=== PATIENT | male | born 1950 | race Hispanic/Latino ===

== ENCOUNTER 2017-04-21 20:32 | Inpatient (IN) | payer MEDICARE ==
[~2017-04-21] VITALS: Ht 162.6 cm; Wt 60.4 kg
[2017-04-21 21:06] LABS: BASOPHILS % (AUTO) 0.1 % (0.0-5.0); EOSINOPHILS % (AUTO) 0.2 % (0.0-8.0); HEMATOCRIT 28.3 % (42-54); LYMPHOCYTES % (AUTO) 7.1 % (21.0-51.0); MEAN CORPUSCULAR HEMOGLOBIN 28.8 pg (27.0-33.0); MEAN CORPUSCULAR HGB CONC 34.3 g/dL (32.0-36.0); MONOCYTES % (AUTO) 6.9 % (3.0-13.0); NEUTROPHILS % (AUTO) 85.7 % (40.0-77.0); PLATELET COUNT (AUTO) 224 K/uL (130-400); RED BLOOD CELL COUNT(AUTO) 3.36 MIL/uL (4.50-6.20); RED CELL DISTRIBUTION WIDTH 15.1 % (11.0-15.5); WHITE BLOOD COUNT (AUTO) 29.8 K/uL (4.8-10.8)
[2017-04-21 21:19] LABS: INR 0.98 (0.85-1.15); PARTIAL THROMBOPLASTIN TIME 37.1 SEC (26.3-35.5); PROTHROMBIN TIME 10.3 SEC (9.6-11.6)
[2017-04-21 21:25] LABS: ALBUMIN 2.6 g/dL (3.5-5.0); BILIRUBIN,TOTAL 0.5 mg/dL (0.2-1.0)
[2017-04-21 21:26] LABS: CREATININE 1.6 mg/dL (0.5-1.5)
[2017-04-21] MEDS ORDERED: TETANUS/DIPHTHERIA TOXOID [ADULT] 0.5 ML VIAL IM ONE (21:35)
[2017-04-21] MEDS ORDERED: CEFTRIAXONE SODIUM 1 GM ONE (21:35)
[2017-04-21 21:58] LABS: BAND NEUTROPHILS % (MANUAL) 12 % (0-2); EOSINOPHILS % (MANUAL) 1 % (1-6); LYMPHOCYTES % (MANUAL) 3 % (22-44); MAN.DIFF COMMENT-IMPRESSION MANUAL DIFFERENTIAL; MONOCYTES % (MANUAL) 4 % (2-9); REACTIVE LYMPHOCYTES 1 % (0-0); SEGMENTED NEUTROPHILS % 79 % (40-70)
[2017-04-21] MEDS ORDERED: INSULIN HUMULIN R 100 UNIT/ML 3ML ONE (22:25)
[2017-04-21] MEDS ORDERED: SODIUM CHLORIDE 0.9% 1000ML 1,000 ML IV SCH (23:35)
[2017-04-21] MEDS ORDERED: ACETAMINOPHEN 325 MG TAB PO PRN ×2 (23:45)
[2017-04-21] MEDS ORDERED: HYDRALAZINE HCL 20 MG/ML VIAL IV PRN (23:45)
[2017-04-21] MEDS ORDERED: VANCOMYCIN PROTOCOL PER PHARMACY IV SCH (23:45)
[2017-04-21] MEDS ORDERED: ONDANSETRON HCL 4 MG/2 ML VIAL IV PRN (23:45)
[2017-04-21] MEDS ORDERED: MORPHINE SULFATE 2 MG/ML 1ML SYG IV PRN (23:45)
[2017-04-21] MEDS ORDERED: VANCOMYCIN 1GM+NS 250ML 250 ML IV SCH (23:45)
[2017-04-21] MEDS ORDERED: CEFTRIAXONE 1GM/D5W 50ML 50 ML IV SCH (23:45)
[2017-04-22] MEDS: CEFTRIAXONE SODIUM 1 GM IVP SCH
[2017-04-22] MEDS ORDERED: VANCOMYCIN 1GM+NS 250ML 250 ML IV ONE (00:03)
[2017-04-22] MEDS ORDERED: SODIUM CHLORIDE 0.9% 1000ML 1,000 ML IV ONE (00:03)
[2017-04-22] MEDS ORDERED: MORPHINE SULFATE 8 MG/ML VIAL ONE (04:21)
[2017-04-22 05:59] LABS: HEMATOCRIT 26.5 % (42-54); MEAN CORPUSCULAR HEMOGLOBIN 28.7 pg (27.0-33.0); MEAN CORPUSCULAR HGB CONC 34.4 g/dL (32.0-36.0); MEAN CORPUSCULAR VOLUME 83.4 fL (79-99); PLATELET COUNT (AUTO) 213 K/uL (130-400); RED BLOOD CELL COUNT(AUTO) 3.18 MIL/uL (4.50-6.20); RED CELL DISTRIBUTION WIDTH 15.5 % (11.0-15.5); WHITE BLOOD COUNT (AUTO) 29.1 K/uL (4.8-10.8)
[2017-04-22 06:19] LABS: CREATININE 1.4 mg/dL (0.5-1.5); POTASSIUM 4.2 mmol/L (3.5-5.1); THYROID STIMULATING HORMONE 1.56 uIU/mL (0.36-3.74)
[2017-04-22 06:23] LABS: HEMOGLOBIN A1C 8.6 % (4.0-6.0)
[2017-04-22] MEDS: INSULIN HUMULIN R 100 UNIT/ML 3ML SQ SCH ×4 (07:30→20:54)
[2017-04-22] MEDS ORDERED: INSULIN HUMULIN R 100 UNIT/ML 3ML ONE (08:43)
[2017-04-22] MEDS: FAMOTIDINE 20MG TAB 20 MG TAB PO SCH ×2 (09:00→20:47)
[2017-04-22] MEDS ORDERED: FAMOTIDINE 20MG TAB 20 MG TAB ONE (09:31)
[2017-04-22 12:44] LABS: CHOLESTEROL 119 mg/dL (<200); HDL CHOLESTEROL 18 mg/dL (29-71); LDL DIRECT 69 mg/dL (0-99); TRIGLYCERIDES 115 mg/dL (30-200)
[2017-04-22 12:58] VITALS: BP 143/73
[2017-04-22 15:24] VITALS: BP 140/65
[2017-04-22 20:00] VITALS: BP 142/76
[2017-04-22] MEDS ORDERED: MORPHINE SULFATE 4 MG/1ML SYG ONE (20:44)
[2017-04-22] MEDS: VANCOMYCIN 1GM+NS 250ML 250 ML IV SCH (20:47)
[2017-04-23] VITALS (8 sets, daily range): BP systolic 130–154; BP diastolic 62–100
[2017-04-23] MEDS: CEFTRIAXONE SODIUM 1 GM IVP SCH (00:36)
[2017-04-23] MEDS ORDERED: INSU300I SQ (02:46)
[2017-04-23] MEDS ORDERED: ASPI-555 PO (02:46)
[2017-04-23] MEDS ORDERED: SIMV20TA6 PO (02:46)
[2017-04-23] MEDS ORDERED: LOSA25TA21 PO (02:46)
[2017-04-23] MEDS ORDERED: METF10004 PO (02:46)
[2017-04-23 04:28] LABS: HEMATOCRIT 24.5 % (42-54); MEAN CORPUSCULAR HGB CONC 33.8 g/dL (32.0-36.0); MEAN CORPUSCULAR VOLUME 82.9 fL (79-99); PLATELET COUNT (AUTO) 240 K/uL (130-400); RED BLOOD CELL COUNT(AUTO) 2.96 MIL/uL (4.50-6.20); RED CELL DISTRIBUTION WIDTH 15.6 % (11.0-15.5); WHITE BLOOD COUNT (AUTO) 27.1 K/uL (4.8-10.8)
[2017-04-23 04:35] LABS: CREATININE 1.1 mg/dL (0.5-1.5); POTASSIUM 3.5 mmol/L (3.5-5.1)
[2017-04-23] MEDS: INSULIN HUMULIN R 100 UNIT/ML 3ML SQ SCH ×4 (06:45→20:43)
[2017-04-23] MEDS: FAMOTIDINE 20MG TAB 20 MG TAB PO SCH ×2 (09:33→20:32)
[2017-04-23] MEDS ORDERED: MORPHINE SULFATE 4 MG/1ML SYG IVP PRN (10:30)
[2017-04-23] MEDS ORDERED: HYDRALAZINE HCL 20 MG/ML VIAL IV PRN (10:30)
[2017-04-23] MEDS ORDERED: ACETAMINOPHEN-CODEINE 300/30MG TAB PO PRN (10:30)
[2017-04-23] MEDS ORDERED: KETOROLAC TROMETHAMINE 15MG/ML IV PRN (10:30)
[2017-04-23] MEDS ORDERED: CEFAZOLIN 1GM / D5W 50ML 50 ML IV SCH (15:00)
[2017-04-23] MEDS: CEFAZOLIN SODIUM 1 GM VIAL IVP SCH ×2 (15:58→22:53)
[2017-04-23] MEDS: ACETAMINOPHEN-CODEINE 300/30MG TAB PO PRN (16:34)
[2017-04-23] MEDS: VANCOMYCIN 1GM+NS 250ML 250 ML IV SCH (20:33)
[2017-04-23] MEDS: INSULIN GLARGINE 100 UNITS/ML 10 ML VIAL SQ SCH (20:50)
[2017-04-24 03:30] VITALS: BP 157/73
[2017-04-24 04:45] LABS: HEMATOCRIT 25.2 % (42-54); MEAN CORPUSCULAR HEMOGLOBIN 28.3 pg (27.0-33.0); MEAN CORPUSCULAR HGB CONC 33.9 g/dL (32.0-36.0); MEAN CORPUSCULAR VOLUME 83.5 fL (79-99); PLATELET COUNT (AUTO) 277 K/uL (130-400); RED BLOOD CELL COUNT(AUTO) 3.02 MIL/uL (4.50-6.20); RED CELL DISTRIBUTION WIDTH 15.7 % (11.0-15.5); WHITE BLOOD COUNT (AUTO) 22.6 K/uL (4.8-10.8)
[2017-04-24 04:56] LABS: CREATININE 1.2 mg/dL (0.5-1.5); POTASSIUM 3.7 mmol/L (3.5-5.1)
[2017-04-24] MEDS: CEFAZOLIN SODIUM 1 GM VIAL IVP SCH ×3 (06:17→22:27)
[2017-04-24] MEDS: INSULIN HUMULIN R 100 UNIT/ML 3ML SQ SCH ×4 (06:28→21:28)
[2017-04-24 07:00] VITALS: BP 149/69
[2017-04-24] MEDS ORDERED: IOPAMIDOL-370 100 ML VIAL IV ONE (07:18)
[2017-04-24] MEDS ORDERED: ISOVUE-370 50ML VIAL IV ONE (07:18)
[2017-04-24] MEDS: ENOXAPARIN SODIUM 40 MG/0.4 ML SYRINGE SQ SCH (08:28)
[2017-04-24] MEDS: LOSARTAN 50 MG TABLET PO SCH (08:28)
[2017-04-24] MEDS: ASPIRIN 81 MG EC TAB PO SCH (08:28)
[2017-04-24] MEDS: ATORVASTATIN CALCIUM 10 MG TABLET PO SCH (08:28)
[2017-04-24] MEDS: FAMOTIDINE 20MG TAB 20 MG TAB PO SCH ×2 (08:28→21:26)
[2017-04-24 11:00] VITALS: BP 142/64
[2017-04-24] MEDS: ACETAMINOPHEN-CODEINE 300/30MG TAB PO PRN (15:00)
[2017-04-24 16:00] VITALS: BP 125/61
[2017-04-24 19:38] VITALS: BP 141/62
[2017-04-24] MEDS: VANCOMYCIN 1GM+NS 250ML 250 ML IV SCH (21:27)
[2017-04-24] MEDS: INSULIN GLARGINE 100 UNITS/ML 10 ML VIAL SQ SCH (21:29)
[2017-04-24 23:54] VITALS: BP 133/73
[2017-04-25 03:47] VITALS: BP 115/49
[2017-04-25 06:23] LABS: HEMATOCRIT 24.5 % (42-54); MEAN CORPUSCULAR HEMOGLOBIN 27.7 pg (27.0-33.0); MEAN CORPUSCULAR HGB CONC 33.2 g/dL (32.0-36.0); MEAN CORPUSCULAR VOLUME 83.3 fL (79-99); PLATELET COUNT (AUTO) 316 K/uL (130-400); RED BLOOD CELL COUNT(AUTO) 2.94 MIL/uL (4.50-6.20); RED CELL DISTRIBUTION WIDTH 15.6 % (11.0-15.5); WHITE BLOOD COUNT (AUTO) 16.8 K/uL (4.8-10.8)
[2017-04-25] MEDS: INSULIN HUMULIN R 100 UNIT/ML 3ML SQ SCH ×4 (06:30→20:59)
[2017-04-25 06:32] LABS: CREATININE 1.1 mg/dL (0.5-1.5); POTASSIUM 4.1 mmol/L (3.5-5.1)
[2017-04-25] MEDS: CEFAZOLIN SODIUM 1 GM VIAL IVP SCH ×3 (06:50→23:27)
[2017-04-25 08:00] VITALS: BP 140/58
[2017-04-25] MEDS: ATORVASTATIN CALCIUM 10 MG TABLET PO SCH (09:54)
[2017-04-25] MEDS: ASPIRIN 81 MG EC TAB PO SCH (09:54)
[2017-04-25] MEDS: FAMOTIDINE 20MG TAB 20 MG TAB PO SCH ×2 (09:55→20:53)
[2017-04-25] MEDS: LOSARTAN 50 MG TABLET PO SCH (09:55)
[2017-04-25] MEDS: ENOXAPARIN SODIUM 40 MG/0.4 ML SYRINGE SQ SCH (09:56)
[2017-04-25 11:58] VITALS: BP 153/69
[2017-04-25 16:00] VITALS: BP 131/58
[2017-04-25 19:43] VITALS: BP 144/85
[2017-04-25] MEDS: INSULIN GLARGINE 100 UNITS/ML 10 ML VIAL SQ SCH (21:01)
[2017-04-25] MEDS: VANCOMYCIN 1GM+NS 250ML 250 ML IV SCH (21:02)
[2017-04-25 23:43] VITALS: BP 141/67
[2017-04-26 03:58] VITALS: BP 141/67
[2017-04-26] MEDS: CEFAZOLIN SODIUM 1 GM VIAL IVP SCH ×3 (06:09→23:47)
[2017-04-26] MEDS: INSULIN HUMULIN R 100 UNIT/ML 3ML SQ SCH ×4 (06:10→21:14)
[2017-04-26 08:00] VITALS: BP 110/56
[2017-04-26] MEDS: LOSARTAN 50 MG TABLET PO SCH (09:58)
[2017-04-26] MEDS: CLOPIDOGREL BISULFATE 75 MG TAB PO SCH (09:59)
[2017-04-26] MEDS: ATORVASTATIN CALCIUM 10 MG TABLET PO SCH (10:00)
[2017-04-26] MEDS: FERROUS SULFATE 325 MG TABLET.DR PO SCH ×2 (10:00→21:05)
[2017-04-26] MEDS: ASPIRIN 81 MG EC TAB PO SCH (10:00)
[2017-04-26] MEDS: FAMOTIDINE 20MG TAB 20 MG TAB PO SCH ×2 (10:00→21:05)
[2017-04-26] MEDS: METOPROLOL TARTRATE 25 MG TAB PO SCH ×2 (10:01→21:05)
[2017-04-26] MEDS: VANCOMYCIN 1GM+NS 250ML 250 ML IV SCH ×2 (10:01→21:05)
[2017-04-26] MEDS: ENOXAPARIN SODIUM 40 MG/0.4 ML SYRINGE SQ SCH (10:04)
[2017-04-26 11:00] VITALS: BP 155/68
[2017-04-26] MEDS ORDERED: MORPHINE SULFATE 4 MG/1ML SYG IV PRN (15:45)
[2017-04-26 16:00] VITALS: BP 159/60
[2017-04-26 20:00] VITALS: BP 128/59
[2017-04-26] MEDS: INSULIN GLARGINE 100 UNITS/ML 10 ML VIAL SQ SCH (21:13)
[2017-04-27] VITALS (28 sets, daily range): BP systolic 113–161; BP diastolic 50–79
[2017-04-27] MEDS: CEFAZOLIN SODIUM 1 GM VIAL IVP SCH ×3 (06:01→22:16)
[2017-04-27] MEDS: METOPROLOL TARTRATE 25 MG TAB PO SCH (06:14)
[2017-04-27] MEDS: INSULIN HUMULIN R 100 UNIT/ML 3ML SQ SCH ×4 (06:15→22:13)
[2017-04-27] MEDS ORDERED: SODIUM CHLORIDE 0.9% 1000ML 1,000 ML IV ONE (06:41)
[2017-04-27] MEDS ORDERED: BUPIVACAINE/PF 0.5% 30ML VIAL ONE (06:58)
[2017-04-27] MEDS ORDERED: LIDOCAINE HCL 1% 20 ML VIAL ONE (06:58)
[2017-04-27] MEDS ORDERED: FENTANYL CITRATE PF 50 MCG/1 ML 2ML VIAL ONE (07:10)
[2017-04-27] MEDS ORDERED: MIDAZOLAM HCL 1 MG/ML 2ML VIAL ONE (07:10)
[2017-04-27] MEDS ORDERED: PROPOFOL 10 MG/ML 20ML VIAL IV ONE (07:10)
[2017-04-27] MEDS: METOPROLOL TARTRATE 50 MG TAB PO SCH ×2 (09:00→22:16)
[2017-04-27] MEDS: MUPIROCIN OINTMENT 22 GM TUBE TP SCH (09:00)
[2017-04-27] MEDS: ASPIRIN 81 MG EC TAB PO SCH (10:23)
[2017-04-27] MEDS: LOSARTAN 50 MG TABLET PO SCH (10:24)
[2017-04-27] MEDS: FAMOTIDINE 20MG TAB 20 MG TAB PO SCH ×2 (10:25→22:16)
[2017-04-27] MEDS: VANCOMYCIN 1GM+NS 250ML 250 ML IV SCH ×2 (10:25→22:17)
[2017-04-27] MEDS: CLOPIDOGREL BISULFATE 75 MG TAB PO SCH (10:25)
[2017-04-27] MEDS: ATORVASTATIN CALCIUM 10 MG TABLET PO SCH (10:26)
[2017-04-27] MEDS: FERROUS SULFATE 325 MG TABLET.DR PO SCH ×2 (10:26→22:16)
[2017-04-27] MEDS: ENOXAPARIN SODIUM 40 MG/0.4 ML SYRINGE SQ SCH (10:31)
[2017-04-27] MEDS: INSULIN GLARGINE 100 UNITS/ML 10 ML VIAL SQ SCH (22:14)
[2017-04-28] VITALS: BP 120/55
[2017-04-28 04:00] VITALS: BP 138/69
[2017-04-28 04:20] LABS: HEMATOCRIT 23.2 % (42-54); MEAN CORPUSCULAR HEMOGLOBIN 28.5 pg (27.0-33.0); MEAN CORPUSCULAR HGB CONC 34.2 g/dL (32.0-36.0); MEAN CORPUSCULAR VOLUME 83.4 fL (79-99); PLATELET COUNT (AUTO) 483 K/uL (130-400); RED BLOOD CELL COUNT(AUTO) 2.78 MIL/uL (4.50-6.20); RED CELL DISTRIBUTION WIDTH 15.3 % (11.0-15.5); WHITE BLOOD COUNT (AUTO) 14.7 K/uL (4.8-10.8)
[2017-04-28 04:40] LABS: CREATININE 1.2 mg/dL (0.5-1.5); POTASSIUM 3.5 mmol/L (3.5-5.1)
[2017-04-28] MEDS: CEFAZOLIN SODIUM 1 GM VIAL IVP SCH ×2 (06:21→16:31)
[2017-04-28] MEDS: INSULIN HUMULIN R 100 UNIT/ML 3ML SQ SCH ×3 (06:26→16:38)
[2017-04-28 07:00] VITALS: BP 145/59
[2017-04-28] MEDS: VANCOMYCIN 1GM+NS 250ML 250 ML IV SCH (09:00)
[2017-04-28] MEDS: FERROUS SULFATE 325 MG TABLET.DR PO SCH (09:22)
[2017-04-28] MEDS: ASPIRIN 81 MG EC TAB PO SCH (09:22)
[2017-04-28] MEDS: CLOPIDOGREL BISULFATE 75 MG TAB PO SCH (09:22)
[2017-04-28] MEDS: ATORVASTATIN CALCIUM 10 MG TABLET PO SCH (09:22)
[2017-04-28] MEDS: FAMOTIDINE 20MG TAB 20 MG TAB PO SCH (09:22)
[2017-04-28] MEDS: LOSARTAN 50 MG TABLET PO SCH (09:23)
[2017-04-28] MEDS: MUPIROCIN OINTMENT 22 GM TUBE TP SCH (09:24)
[2017-04-28] MEDS: ENOXAPARIN SODIUM 40 MG/0.4 ML SYRINGE SQ SCH (09:25)
[2017-04-28] MEDS: METOPROLOL TARTRATE 50 MG TAB PO SCH (09:26)
[2017-04-28 09:44] LABS: RETICULOCYTE % (AUTO) 2.37 % (0.42-2.23)
[2017-04-28] MEDS ORDERED: IRON SUCROSE COMPLEX 100 MG in SODIUM CHLORIDE 0.9% 50 ML IV SCH (10:08)
[2017-04-28] MEDS ORDERED: COMPOUND IV MISC 1 EACH IVSOLN MISC PRN (10:15)
[2017-04-28 11:00] VITALS: BP 151/66
[2017-04-28 16:00] VITALS: BP 149/67
== END 2017-04-28 17:50 | DRG 854 ==
LOC: EDH 20:32 → EDHIP 22:58 → OBSVTOIN 22:58 → 3CH 04-22 11:55
PROVIDERS: ADMIT Internal Medicine; ATTEND Internal Medicine
PROC: 3E0234Z Introduction of Serum, Toxoid and Vaccine into Muscle, Percutaneous Approach (ICD-10-PCS; 2017-04-27)
PROC: 0J9R0ZZ Drainage of Left Foot Subcutaneous Tissue and Fascia, Open Approach (ICD-10-PCS; principal; 2017-04-27 07:00)
DX: A41.9 Sepsis, unspecified organism (principal); N17.9 Acute kidney failure, unspecified; E11.21 Type 2 diabetes mellitus with diabetic nephropathy; E11.51 Type 2 diabetes mellitus with diabetic peripheral angiopathy without gangrene; L02.416 Cutaneous abscess of left lower limb; E87.1 Hypo-osmolality and hyponatremia; L03.116 Cellulitis of left lower limb; L02.414 Cutaneous abscess of left upper limb; L97.329 Non-pressure chronic ulcer of left ankle with unspecified severity; E11.65 Type 2 diabetes mellitus with hyperglycemia; D64.9 Anemia, unspecified; E11.622 Type 2 diabetes mellitus with other skin ulcer; E78.5 Hyperlipidemia, unspecified; F17.210 Nicotine dependence, cigarettes, uncomplicated; I10 Essential (primary) hypertension; I35.0 Nonrheumatic aortic (valve) stenosis; K27.9 Peptic ulcer, site unspecified, unspecified as acute or chronic, without hemorrhage or perforation; Z79.82 Long term (current) use of aspirin; Z23 Encounter for immunization; Z83.3 Family history of diabetes mellitus
CPT/HCPCS: 36415; 73700; 75635; 80048; 80053; 80061; 80202; 82607; 82728; 82746; 82948; 83036; 83605; 84443; 85007; 85025; 85027; 85610; 85651; 85730; 87040; 87070; 87076; 87077; 90714; 93306; 93926; 93971; A4218; J0360; J0690; J0696; J1650; J1756; J1815; J2250; J2270; J2704; J3010; J3370; J3490; J7030; Q9967

== ENCOUNTER → 2017-06-02 | Outpatient (CLI) | payer MEDICARE ==
[~2017-06-02] MED LIST: ASPI-555 PO; HONEY 1 APPL/ML TUBE TP ONE; INSU300I SQ; LOSA25TA21 PO; METF10004 PO; SIMV20TA6 PO
[2017-06-02 13:44] VITALS: BP 158/62
== END | disposition home or self-care (01) ==
LOC: WHH 10:30
PROVIDERS: ATTEND Podiatrist Foot & Ankle Surgery
DX: E11.622 Type 2 diabetes mellitus with other skin ulcer (principal); I70.243 Atherosclerosis of native arteries of left leg with ulceration of ankle; L97.321 Non-pressure chronic ulcer of left ankle limited to breakdown of skin; E11.21 Type 2 diabetes mellitus with diabetic nephropathy; E11.65 Type 2 diabetes mellitus with hyperglycemia; E11.42 Type 2 diabetes mellitus with diabetic polyneuropathy; E11.51 Type 2 diabetes mellitus with diabetic peripheral angiopathy without gangrene; I10 Essential (primary) hypertension; F17.210 Nicotine dependence, cigarettes, uncomplicated; Z79.82 Long term (current) use of aspirin
CPT/HCPCS: A4450; G0463

== ENCOUNTER 2017-06-23 09:22 | Emergency (ER) | payer MEDICARE ==
[~2017-06-23 09:22] MED LIST changes: -HONEY 1 APPL/ML TUBE TP ONE
[2017-06-23 10:15] LABS: BASOPHILS % (AUTO) 0.6 % (0.0-5.0); EOSINOPHILS % (AUTO) 0.9 % (0.0-8.0); HEMATOCRIT 34.5 % (42-54); LYMPHOCYTES % (AUTO) 16.7 % (21.0-51.0); MEAN CORPUSCULAR HGB CONC 34.5 g/dL (32.0-36.0); MEAN CORPUSCULAR VOLUME 86.8 fL (79-99); MONOCYTES % (AUTO) 8.5 % (3.0-13.0); NEUTROPHILS % (AUTO) 73.3 % (40.0-77.0); PLATELET COUNT (AUTO) 274 K/uL (130-400); RED BLOOD CELL COUNT(AUTO) 3.97 MIL/uL (4.50-6.20); RED CELL DISTRIBUTION WIDTH 17.3 % (11.0-15.5); WHITE BLOOD COUNT (AUTO) 15.7 K/uL (4.8-10.8)
[2017-06-23 10:21] LABS: CREATININE 1.2 mg/dL (0.5-1.5); POTASSIUM 4.3 mmol/L (3.5-5.1)
[2017-06-23 10:27] LABS: ALBUMIN 2.6 g/dL (3.5-5.0); BILIRUBIN,TOTAL 0.4 mg/dL (0.2-1.0); TOTAL PROTEIN, SERUM 7.5 g/dL (6.0-8.3)
[2017-06-23] MEDS ORDERED: CLINDAMYCIN HCL 150 MG CAP ONE (10:53)
[2017-06-23] MEDS ORDERED: CEFTRIAXONE SODIUM 1 GM ONE (10:54)
== END 2017-06-23 11:17 | disposition home or self-care (01) ==
LOC: EDH 09:22
DX: L97.329 Non-pressure chronic ulcer of left ankle with unspecified severity (principal); E11.9 Type 2 diabetes mellitus without complications; Z90.49 Acquired absence of other specified parts of digestive tract
CPT/HCPCS: 36415; 73600; 80053; 85025; 96374; 99285; J0696

== ENCOUNTER → 2017-06-30 | Outpatient (CLI) | payer MEDICARE ==
[2017-06-30 14:43] VITALS: BP 134/72
== END | disposition home or self-care (01) ==
LOC: WHH 08:00
PROVIDERS: ATTEND Podiatrist Foot & Ankle Surgery
DX: E11.622 Type 2 diabetes mellitus with other skin ulcer (principal); L97.321 Non-pressure chronic ulcer of left ankle limited to breakdown of skin; I70.243 Atherosclerosis of native arteries of left leg with ulceration of ankle; E11.21 Type 2 diabetes mellitus with diabetic nephropathy; E11.65 Type 2 diabetes mellitus with hyperglycemia; E11.42 Type 2 diabetes mellitus with diabetic polyneuropathy; E11.51 Type 2 diabetes mellitus with diabetic peripheral angiopathy without gangrene; I10 Essential (primary) hypertension; F17.210 Nicotine dependence, cigarettes, uncomplicated; Z79.82 Long term (current) use of aspirin
CPT/HCPCS: 11042; 11045

== ENCOUNTER → 2017-07-07 | Outpatient (CLI) | payer MEDICARE ==
[2017-07-07 14:01] VITALS: BP 121/55
== END | disposition home or self-care (01) ==
LOC: WHH 07:45
PROVIDERS: ATTEND Podiatrist Foot & Ankle Surgery
DX: E11.622 Type 2 diabetes mellitus with other skin ulcer (principal); L97.321 Non-pressure chronic ulcer of left ankle limited to breakdown of skin; I70.243 Atherosclerosis of native arteries of left leg with ulceration of ankle; E11.21 Type 2 diabetes mellitus with diabetic nephropathy; E11.65 Type 2 diabetes mellitus with hyperglycemia; E11.42 Type 2 diabetes mellitus with diabetic polyneuropathy; E11.51 Type 2 diabetes mellitus with diabetic peripheral angiopathy without gangrene; I10 Essential (primary) hypertension; F17.210 Nicotine dependence, cigarettes, uncomplicated; Z79.82 Long term (current) use of aspirin
CPT/HCPCS: 11042; 11045; A6209

== ENCOUNTER → 2017-07-21 | Outpatient (CLI) | payer MEDICARE | END | disposition home or self-care (01) | LOC: SHCH 07:51 | PROVIDERS: ATTEND Internal Medicine Cardiovascular Disease | DX: I65.23 Occlusion and stenosis of bilateral carotid arteries (principal) | CPT/HCPCS: 93880 ==

== ENCOUNTER → 2017-07-21 | Outpatient (CLI) | payer MEDICARE ==
[~2017-07-21] MED LIST changes: +LIDOCAINE/PRILOCAINE CREAM 5GM TUBE TP ONE
[2017-07-21 13:42] VITALS: BP 158/67
== END | disposition home or self-care (01) ==
LOC: WHH 08:30
PROVIDERS: ATTEND Podiatrist Foot & Ankle Surgery
DX: E11.622 Type 2 diabetes mellitus with other skin ulcer (principal); L97.321 Non-pressure chronic ulcer of left ankle limited to breakdown of skin; I70.243 Atherosclerosis of native arteries of left leg with ulceration of ankle; E11.21 Type 2 diabetes mellitus with diabetic nephropathy; E11.65 Type 2 diabetes mellitus with hyperglycemia; E11.42 Type 2 diabetes mellitus with diabetic polyneuropathy; E11.51 Type 2 diabetes mellitus with diabetic peripheral angiopathy without gangrene; I10 Essential (primary) hypertension; F17.210 Nicotine dependence, cigarettes, uncomplicated; Z79.82 Long term (current) use of aspirin
CPT/HCPCS: 11042; 11045 ×2; A6209; J3490

== ENCOUNTER → 2017-07-28 | Outpatient (CLI) | payer MEDICARE ==
[~2017-07-28] MED LIST changes: -LIDOCAINE/PRILOCAINE CREAM 5GM TUBE TP ONE
[2017-07-28 14:02] VITALS: BP 148/76
== END | disposition home or self-care (01) ==
LOC: WHH 08:00
PROVIDERS: ATTEND Podiatrist Foot & Ankle Surgery
DX: I70.243 Atherosclerosis of native arteries of left leg with ulceration of ankle (principal); E11.622 Type 2 diabetes mellitus with other skin ulcer; L97.321 Non-pressure chronic ulcer of left ankle limited to breakdown of skin; E11.21 Type 2 diabetes mellitus with diabetic nephropathy; E11.42 Type 2 diabetes mellitus with diabetic polyneuropathy; E11.51 Type 2 diabetes mellitus with diabetic peripheral angiopathy without gangrene; F17.210 Nicotine dependence, cigarettes, uncomplicated; Z90.49 Acquired absence of other specified parts of digestive tract
CPT/HCPCS: 11042; 11045 ×2; A6209

== ENCOUNTER → 2017-08-04 | Outpatient (CLI) | payer MEDICARE ==
[2017-08-04 14:11] VITALS: BP 155/58
== END | disposition home or self-care (01) ==
LOC: WHH 07:40
PROVIDERS: ATTEND Podiatrist Foot & Ankle Surgery
DX: I70.243 Atherosclerosis of native arteries of left leg with ulceration of ankle (principal); E11.622 Type 2 diabetes mellitus with other skin ulcer; L97.321 Non-pressure chronic ulcer of left ankle limited to breakdown of skin; E11.21 Type 2 diabetes mellitus with diabetic nephropathy; E11.42 Type 2 diabetes mellitus with diabetic polyneuropathy; E11.65 Type 2 diabetes mellitus with hyperglycemia; E11.51 Type 2 diabetes mellitus with diabetic peripheral angiopathy without gangrene; F17.210 Nicotine dependence, cigarettes, uncomplicated; Z90.49 Acquired absence of other specified parts of digestive tract
CPT/HCPCS: 15271; 15272; A6207; Q4121; 15275; 15276

== ENCOUNTER → 2017-08-11 | Outpatient (CLI) | payer MEDICARE ==
[2017-08-11 13:25] VITALS: BP 153/59
== END | disposition home or self-care (01) ==
LOC: WHH 13:05
PROVIDERS: ATTEND Podiatrist Foot & Ankle Surgery
DX: I70.243 Atherosclerosis of native arteries of left leg with ulceration of ankle (principal); E11.622 Type 2 diabetes mellitus with other skin ulcer; L97.321 Non-pressure chronic ulcer of left ankle limited to breakdown of skin; E11.42 Type 2 diabetes mellitus with diabetic polyneuropathy; E11.21 Type 2 diabetes mellitus with diabetic nephropathy; E11.51 Type 2 diabetes mellitus with diabetic peripheral angiopathy without gangrene; I10 Essential (primary) hypertension; F17.210 Nicotine dependence, cigarettes, uncomplicated; Z90.49 Acquired absence of other specified parts of digestive tract
CPT/HCPCS: G0463

== ENCOUNTER → 2017-08-18 | Outpatient (CLI) | payer MEDICARE ==
[2017-08-18 14:11] VITALS: BP 104/79
== END | disposition home or self-care (01) ==
LOC: WHH 08:00
PROVIDERS: ATTEND Podiatrist Foot & Ankle Surgery
DX: I70.243 Atherosclerosis of native arteries of left leg with ulceration of ankle (principal); E11.622 Type 2 diabetes mellitus with other skin ulcer; L97.321 Non-pressure chronic ulcer of left ankle limited to breakdown of skin; I10 Essential (primary) hypertension; E11.42 Type 2 diabetes mellitus with diabetic polyneuropathy; E11.21 Type 2 diabetes mellitus with diabetic nephropathy; E11.51 Type 2 diabetes mellitus with diabetic peripheral angiopathy without gangrene; F17.210 Nicotine dependence, cigarettes, uncomplicated; Z90.49 Acquired absence of other specified parts of digestive tract
CPT/HCPCS: 15271; 15272; A4450; Q4121

== ENCOUNTER → 2017-09-08 | Outpatient (CLI) | payer MEDICARE ==
[2017-09-08 15:35] VITALS: BP 141/64
== END | disposition home or self-care (01) ==
LOC: WHH 08:00
PROVIDERS: ATTEND Podiatrist Foot & Ankle Surgery
DX: I70.243 Atherosclerosis of native arteries of left leg with ulceration of ankle (principal); E11.622 Type 2 diabetes mellitus with other skin ulcer; L97.321 Non-pressure chronic ulcer of left ankle limited to breakdown of skin; E11.42 Type 2 diabetes mellitus with diabetic polyneuropathy; E11.21 Type 2 diabetes mellitus with diabetic nephropathy; E11.51 Type 2 diabetes mellitus with diabetic peripheral angiopathy without gangrene; E11.65 Type 2 diabetes mellitus with hyperglycemia; I10 Essential (primary) hypertension; F17.210 Nicotine dependence, cigarettes, uncomplicated; Z90.49 Acquired absence of other specified parts of digestive tract
CPT/HCPCS: 15271; 15272; A6207; Q4121 ×2

== ENCOUNTER → 2017-11-24 | Outpatient (CLI) | payer MEDICARE ==
[~2017-11-24] MED LIST changes: +LOSA25TA16 PO; -LOSA25TA21 PO; +METF-446 PO; -METF10004 PO
[2017-11-24 13:35] VITALS: BP 162/71
== END | disposition home or self-care (01) ==
LOC: WHH 08:00
PROVIDERS: ATTEND Podiatrist Foot & Ankle Surgery
DX: I70.243 Atherosclerosis of native arteries of left leg with ulceration of ankle (principal); E11.622 Type 2 diabetes mellitus with other skin ulcer; L97.321 Non-pressure chronic ulcer of left ankle limited to breakdown of skin; I10 Essential (primary) hypertension; E11.42 Type 2 diabetes mellitus with diabetic polyneuropathy; E11.51 Type 2 diabetes mellitus with diabetic peripheral angiopathy without gangrene; E11.21 Type 2 diabetes mellitus with diabetic nephropathy; F17.210 Nicotine dependence, cigarettes, uncomplicated; Z90.49 Acquired absence of other specified parts of digestive tract
CPT/HCPCS: 97597; A4649

== ENCOUNTER → 2017-12-01 | Outpatient (CLI) | payer MEDICARE ==
[2017-12-01 13:20] VITALS: BP 128/66
== END | disposition home or self-care (01) ==
LOC: WHH 13:00
PROVIDERS: ATTEND Podiatrist Foot & Ankle Surgery
DX: I70.243 Atherosclerosis of native arteries of left leg with ulceration of ankle (principal); E11.622 Type 2 diabetes mellitus with other skin ulcer; L97.321 Non-pressure chronic ulcer of left ankle limited to breakdown of skin; I10 Essential (primary) hypertension; E11.42 Type 2 diabetes mellitus with diabetic polyneuropathy; E11.51 Type 2 diabetes mellitus with diabetic peripheral angiopathy without gangrene; E11.21 Type 2 diabetes mellitus with diabetic nephropathy; F17.210 Nicotine dependence, cigarettes, uncomplicated; Z90.49 Acquired absence of other specified parts of digestive tract
CPT/HCPCS: A4649; G0463

== ENCOUNTER → 2017-12-08 | Outpatient (CLI) | payer MEDICARE ==
[2017-12-08 13:18] VITALS: BP 134/58
== END | disposition home or self-care (01) ==
LOC: WHH 08:00
PROVIDERS: ATTEND Podiatrist Foot & Ankle Surgery
DX: I70.243 Atherosclerosis of native arteries of left leg with ulceration of ankle (principal); E11.622 Type 2 diabetes mellitus with other skin ulcer; L97.321 Non-pressure chronic ulcer of left ankle limited to breakdown of skin; I10 Essential (primary) hypertension; E11.42 Type 2 diabetes mellitus with diabetic polyneuropathy; E11.51 Type 2 diabetes mellitus with diabetic peripheral angiopathy without gangrene; E11.21 Type 2 diabetes mellitus with diabetic nephropathy; F17.210 Nicotine dependence, cigarettes, uncomplicated; Z90.49 Acquired absence of other specified parts of digestive tract
CPT/HCPCS: 97597; A4649

== ENCOUNTER → 2017-12-15 | Outpatient (CLI) | payer MEDICARE ==
[2017-12-15 14:18] VITALS: BP 105/51
== END | disposition home or self-care (01) ==
LOC: WHH 08:00
PROVIDERS: ATTEND Podiatrist Foot & Ankle Surgery
DX: I70.243 Atherosclerosis of native arteries of left leg with ulceration of ankle (principal); E11.622 Type 2 diabetes mellitus with other skin ulcer; L97.321 Non-pressure chronic ulcer of left ankle limited to breakdown of skin; I10 Essential (primary) hypertension; E11.42 Type 2 diabetes mellitus with diabetic polyneuropathy; E11.51 Type 2 diabetes mellitus with diabetic peripheral angiopathy without gangrene; E11.21 Type 2 diabetes mellitus with diabetic nephropathy; F17.210 Nicotine dependence, cigarettes, uncomplicated; Z90.49 Acquired absence of other specified parts of digestive tract
CPT/HCPCS: G0463

== ENCOUNTER 2017-12-29 08:00 | Outpatient (CLI) | payer MEDICARE ==
[2017-12-29 14:15] VITALS: BP 179/73
== END 2017-12-29 16:39 | disposition home or self-care (01) ==
LOC: WHH 08:00
PROVIDERS: ATTEND Podiatrist Foot & Ankle Surgery
DX: I70.243 Atherosclerosis of native arteries of left leg with ulceration of ankle (principal); E11.622 Type 2 diabetes mellitus with other skin ulcer; L97.328 Non-pressure chronic ulcer of left ankle with other specified severity; I10 Essential (primary) hypertension; E11.42 Type 2 diabetes mellitus with diabetic polyneuropathy; E11.51 Type 2 diabetes mellitus with diabetic peripheral angiopathy without gangrene; E11.21 Type 2 diabetes mellitus with diabetic nephropathy; F17.210 Nicotine dependence, cigarettes, uncomplicated; Z90.49 Acquired absence of other specified parts of digestive tract
CPT/HCPCS: G0463

== ENCOUNTER → 2019-01-24 | Outpatient (CLI) | payer MEDICARE ==
[~2019-01-24] MED LIST changes: -LOSA25TA16 PO; +LOSA25TA41 PO; +SIMV-43 PO; -SIMV20TA6 PO
== END | disposition home or self-care (01) ==
LOC: SHCH 08:29
PROVIDERS: ATTEND Internal Medicine Cardiovascular Disease
DX: I35.8 Other nonrheumatic aortic valve disorders (principal); I51.7 Cardiomegaly
CPT/HCPCS: 93306

== ENCOUNTER → 2019-03-02 | Outpatient (CLI) | payer MEDICARE | END | disposition home or self-care (01) | LOC: SHCH 08:04 | PROVIDERS: ATTEND Internal Medicine Cardiovascular Disease | DX: I73.9 Peripheral vascular disease, unspecified (principal) | CPT/HCPCS: 93925 ==

== ENCOUNTER → 2019-10-11 | Outpatient (CLI) | payer MEDICARE ==
[~2019-10-11] MED LIST changes: -ASPI-555 PO; +ASPI-556 PO
== END | disposition home or self-care (01) ==
LOC: SHCH 07:51
PROVIDERS: ATTEND Internal Medicine Cardiovascular Disease
DX: I08.0 Rheumatic disorders of both mitral and aortic valves (principal)
CPT/HCPCS: 93306; 93356

== ENCOUNTER → 2021-04-03 | Outpatient (CLI) | payer MEDICARE ==
[~2021-04-03] MED LIST changes: +AEC81 PO; +AMLO-257 PO; -ASPI-556 PO; +ATOR10TA69 PO; +FOLI1TAB85 PO; -INSU300I SQ; -LOSA25TA41 PO; -METF-446 PO; +METO-409 PO; -SIMV-43 PO; +SODI10PO2 PO
== END | disposition home or self-care (01) ==
LOC: SHCH 10:18
PROVIDERS: ATTEND Internal Medicine Cardiovascular Disease
DX: I35.8 Other nonrheumatic aortic valve disorders (principal); I11.9 Hypertensive heart disease without heart failure; E11.9 Type 2 diabetes mellitus without complications; E78.5 Hyperlipidemia, unspecified
CPT/HCPCS: 93306

== ENCOUNTER → 2021-04-07 | Outpatient (CLI) | payer MEDICARE ==
[~2021-04-07] MED LIST changes: +REGADENOSON 0.4 MG/5 ML PF SYG IVP SCH
== END | disposition home or self-care (01) ==
LOC: SHCH 09:22
PROVIDERS: ATTEND Internal Medicine Cardiovascular Disease
DX: R94.31 Abnormal electrocardiogram [ECG] [EKG] (principal); R06.09 Other forms of dyspnea
CPT/HCPCS: 78452; 93017; 96374; A9500 ×2; J2785

== ENCOUNTER → 2022-10-09 | Outpatient (CLI) | payer MEDICARE ==
[~2022-10-09] MED LIST changes: -REGADENOSON 0.4 MG/5 ML PF SYG IVP SCH
== END | disposition home or self-care (01) ==
LOC: SHCH 09:25
PROVIDERS: ATTEND Internal Medicine Cardiovascular Disease
DX: I35.0 Nonrheumatic aortic (valve) stenosis (principal); I34.81 Nonrheumatic mitral (valve) annulus calcification; I11.9 Hypertensive heart disease without heart failure; E11.9 Type 2 diabetes mellitus without complications; E78.5 Hyperlipidemia, unspecified
CPT/HCPCS: 93306

== ENCOUNTER → 2023-02-15 | Outpatient (CLI) | payer MEDICARE | END | disposition home or self-care (01) | LOC: SHCH 15:11 | PROVIDERS: ATTEND Internal Medicine Cardiovascular Disease | DX: I65.23 Occlusion and stenosis of bilateral carotid arteries (principal) | CPT/HCPCS: 93880 ==

== ENCOUNTER → 2023-09-22 | Emergency (ER) | payer MEDICARE ==
[~2023-09-22] VITALS: Ht 162.6 cm; Wt 63.5 kg
[~2023-09-22] MED LIST changes: +SODIUM ZIRCONIUM CYCLOSILICATE 5 GM POWD.PACK PO SCH
[2023-09-22 16:54] LABS: HEMATOCRIT 30.1 % (42-54); MEAN CORPUSCULAR HEMOGLOBIN 32.2 pg (27.0-33.0); MEAN CORPUSCULAR HGB CONC 32.9 g/dL (32.0-36.0); RED BLOOD CELL COUNT(AUTO) 3.07 MIL/uL (4.50-6.20); RED CELL DISTRIBUTION WIDTH 14.2 % (11.0-15.5); WHITE BLOOD COUNT (AUTO) 6.8 K/uL (4.8-10.8)
[2023-09-22 17:03] LABS: CREATININE 5.4 mg/dL (0.5-1.3); POTASSIUM 5.1 mmol/L (3.5-5.1)
[2023-09-22 17:24] VITALS: BP 168/67; PULSE 72; RESP 14; O2SAT 96
== END ==
LOC: EDH 16:12
DX: I12.9 Hypertensive chronic kidney disease with stage 1 through stage 4 chronic kidney disease, or unspecified chronic kidney disease (principal); E11.22 Type 2 diabetes mellitus with diabetic chronic kidney disease; N18.9 Chronic kidney disease, unspecified; E78.00 Pure hypercholesterolemia, unspecified
CPT/HCPCS: 36415; 80048; 84484; 85027; 93005

== ENCOUNTER 2025-02-03 12:39 | Emergency (ER) | payer OTHER ==
[~2025-02-03] VITALS: Ht 165.1 cm; Wt 59.0 kg
[~2025-02-03 12:39] MED LIST changes: -AMLO-257 PO; +DICY10SO PO; +DONE5TAB33 PO; +FERR-72 PO; +FLUT1DIS4 IH; -SODI10PO2 PO; +SODI650T PO; -SODIUM ZIRCONIUM CYCLOSILICATE 5 GM POWD.PACK PO SCH
--- NOTE | 2025-02-03 12:52 | ERN ---
ED Note History of Present Illness Stated Complaint: LEFT KNEE PAIN/ HYPERGLYCEMIA Chief Complaint: Multiple Complaints Time Seen by MD: 12:45 Dictation: IS A 75-YEAR-OLD MALE COMING IN WITH HIS SON WITH COMPLAINTS OF HAVING DIABETES WITH THE ELEVATED BLOOD SUGAR GREATER THAN 300 OVER THE LAST SEVERAL DAYS. PATIENT DENIES FEVER CHILLS NAUSEA VOMITING. IN ADDITION HE HAS LEFT KNEE PAIN FROM A SAME LEVEL TRIP FALL LAST WEEK. SON STATES THEY DID GO TO THE DOCTOR ON WEDNESDAY OF LAST WEEK AND IMAGES WERE DONE HOWEVER THEY NEVER GOT A CALL BACK TO SAY WHAT THE IMAGES AND THE FINDINGS WERE. PATIENT IS A HEMODIALYSIS PATIENT WITH A RIGHT ARM FISTULA GOOD THRILL AND BRUIT NOTED IN TRIAGE. LAST HEMODIALYSIS WAS YESTERDAY. NEPHROLOGISTS HIS DOCTOR BHATLA BLOOD SUGAR 275 IN TRIAGE Allergies: Coded Allergies: No Known Allergies (Unverified Allergy, Unknown, 05/29/24) Home Meds Reported Medications Fluticasone/Salmeterol (ADVAIR 100-50 DISKUS) 14 Inh/Disk Inh, 1 PUFF IH BID for 30 Days, #1 EACH 0 Refills 05/29/24 Sodium Bicarbonate (Sodium Bicarbonate) 650 Mg Tablet, 650 MG PO TID, TAB 05/29/24 Dicyclomine HCl (Dicyclomine HCl) 10 Mg/5 Ml (5 Ml) Solution, 10 MG PO BID, ML 05/29/24 Ferrous Sulfate (Ferrous Sulfate) 325 Mg (65 Mg Iron) Tablet, 1 TAB PO BID for 30 Days, #60 TAB 0 Refills 05/29/24 Donepezil HCl (Donepezil HCl) 5 Mg Tablet, 5 MG PO DAILY, TAB 05/29/24 Vit B Cmplx 3/FA/Vit C/Biotin (Marti-Mariann Rx Tablet) 1 Each Tablet, 1 EACH PO DAILY, TAB 09/15/20 Atorvastatin Calcium (Atorvastatin Calcium) 10 Mg Tablet, 10 MG PO DAILY, TAB 09/15/20 Aspirin (ASPIRIN 81 MG ECTAB) 81 Mg Ectab, 81 MG PO DAILY, TAB.EC 09/15/20 Metoprolol Succinate (Metoprolol Succinate) 100 Mg Tab.er.24h, 100 MG PO DAILY, TAB 09/15/20 Past Medical History Past Medical History: Diabetes-Type II, High Cholesterol, Hypertension, Other Additional Past Medical Hx: REDUCED KIDNEY FUNCTION Surgical History: None Family History: Negative Social History: Negative, Lives with family RN Note Reviewed/Agreed w/PFSH: Yes Review of System Dictation CONSTITUTIONAL: NEGATIVE EXCEPT FOR HPI GB W HEAD/FACE: NEGATIVE EXCEPT FOR HPI EENT: NEGATIVE EXCEPT FOR HPI RESPIRATORY: NEGATIVE EXCEPT FOR HPI GASTROINTESTINAL/ABDOMINAL: NEGATIVE EXCEPT FOR HPI GENITOURINARY: NEGATIVE EXCEPT FOR HPI MUSCULOSKELETAL: NEGATIVE EXCEPT FOR HPI LEFT KNEE INTEGUMENTARY: NEGATIVE EXCEPT FOR HPI NEUROLOGICAL/PSYCH: NEGATIVE EXCEPT FOR HPI HEMATOLOGIC/LYMPHATIC: NEGATIVE EXCEPT FOR HPI ALL SYSTEMS NEGATIVE, EXCEPT NOTED ABOVE. 13 POINT REVIEW OF SYSTEMS ASSESSED AND ALL NEGATIVE EXCEPT FOR ABOVE. Initial Vital Sign VS Vital Signs Date Time Temp Pulse Resp B/P (MAP) Pulse Ox O2 Delivery O2 Flow Rate FiO2 02/03/25 12:44 98.8 67 18 117/51 99 Room Air 0 02/03/25 13:36 21 Physical Exam Dictation VITAL SIGNS REVIEWED GENERAL APPEARANCE: ALERT, ORIENTED X 3, MILD PAIN. PATIENT DEBILITATED HEAD AND FACE: NON-TRAUMATIC. EYES: PERRL, PINK CONJUNCTIVAS, EYELID NO TRAUMA, ANTERIOR CHAMBER WITH ARCUS SENILIS. EARS: PINNAS INTACT AND NO SIGNS OF TRAUMA OR ERYTHEMA EAR CANALS CLEAR AND NO DISCHARGE TM NO ERYTHEMA NOSE: NO DISCHARGE, NO BLEEDING. OROPHARYNX: MOUTH NORMAL, TONGUE PINK, PHARYNX CLEAR,NO ERYTHEMA, TONSILS NO EXUDATES, NO ABSCESSES NOTED, MUCOUS MEMBRANE MOIST NECK: SUPPLE, NON-TENDER, NO THYROMEGALY, NO MASSES, NO JVD, NO BRUITS BREAST:DEFERRED CHEST:NO TENDERNESS, NO CREPITUS, NO PARADOXICAL MOVEMENT, NO RETRACTIONS LUNGS:CLEAR, WELL-VENTILATED, SYMMETRIC, NO RALES, NO WHEEZING, NO RHONCHI, NO STRIDOR, GOOD BREATH SOUNDS BILATERALLY HEART: REGULAR RATE, REGULAR RHYTHM, NO MURMUR, NO GALLOPS VASCULAR: NO PERIPHERAL EDEMA, RIGHT ARM FISTULA GOOD THRILL AND BRUIT. ABDOMEN: SOFT, POSITIVE BOWEL SOUNDS, NONDISTENDED, NO GUARDING, NONTENDER, NO REBOUND, NO MASSES NO HEPATOMEGALY, NO SPLENOMEGALY, NO LOVE'S SIGN, NO HERNIAS. RECTAL: DEFERRED GENITAL: DEFERRED NEUROLOGICAL: NORMAL SPEECH, MOTOR FUNCTION INTACT, SENSORY FUNCTION INTACT MUSCULOSKELETAL: NECK NONTENDER, FULL RANGE OF MOTION, BACK NONTENDER, FULL RANGE OF MOTION, EXTREMITIES: LEFT KNEE TENDERNESS. PATELLA GROSSLY INTACT. NO SHORTENING OR ROTATION OF LEFT LEG. SKIN: COLOR PINK, DRY, NO TURGOR, NO RASH, NO LACERATIONS, NO ABRASIONS, NO CONTUSIONS. LYMPHATIC: DEFERRED Results (Laboratory/Radiology) Laboratory/Radiology Laboratory Tests Test 02/03/25 12:44 02/03/25 13:03 Whole Blood Glucose 276 MG/DL (70-110) H White Blood Count 7.6 K/uL (4.8-10.8) Red Blood Count 3.72 MIL/uL (4.50-6.20) L Hemoglobin 12.2 g/dL (14.0-18.0) L Hematocrit 37.0 % (42-54) L Mean Corpuscular Volume 99.5 fL (79-99) H Mean Corpuscular Hemoglobin 32.8 pg (27.0-33.0) Mean Corpuscular Hemoglobin Concent 33.0 g/dL (32.0-36.0) Red Cell Distribution Width 13.0 % (11.0-15.5) Platelet Count 177 K/uL (130-400) Mean Platelet Volume 10.3 fL (7.5-10.5) Immature Granulocyte % (Auto) 0.5 % (0-1) Neutrophils (%) (Auto) 65.1 % (40.0-77.0) Lymphocytes (%) (Auto) 23.3 % (21.0-51.0) Monocytes (%) (Auto) 8.4 % (3.0-13.0) Eosinophils (%) (Auto) 2.2 % (0.0-8.0) Basophils (%) (Auto) 0.5 % (0.0-5.0) Neutrophils # (Auto) 4.9 K/uL (1.8-7.7) Lymphocytes # (Auto) 1.8 K/uL (1.0-4.8) Monocytes # (Auto) 0.6 K/uL (0.1-1.0) Eosinophils # (Auto) 0.17 K/uL (0.00-0.70) Basophils # (Auto) 0.04 K/uL (0.00-0.20) Absolute Immature Granulocyte (auto 0.04 K/uL (0-1) Nucleated Red Blood Cells 0.0 % (0.0-0.19) Sodium Level 136 mmol/L (136-145) Potassium Level 4.7 mmol/L (3.5-5.1) Chloride Level 97 mmol/L (101-111) L Carbon Dioxide Level 33 mmol/L (21-32) H Blood Urea Nitrogen 43 mg/dL (7-18) H Creatinine 5.1 mg/dL (0.5-1.3) H Glomerular Filtration Rate Calc 11 mL/min (>90) Random Glucose 280 mg/dL (70-105) H Whole Blood Ketones Quantitative 0.2 mmol/L (0.0-0.6) Total Calcium 8.0 mg/dL (8.5-10.1) L Troponin I High Sensitivity 43 ng/L (4-75) B-Type Natriuretic Peptide 545 pg/mL (0-100) H 1312/LEFT KNEE X-RAY NEGATIVE 1315/CHEST X-RAY NEGATIVE Labs Reviewed?: Yes EKG Comment: 1310/EKG SINUS RHYTHM/HEART RATE 62/RIGHT BUNDLE BRANCH BLOCK/AXIS NORMAL ED Course ED Course Orders Procedure Category Date Status Time Ketone Blood LAB 02/03/25 Complete Quantitative 12:48 Cbc With Differential LAB 02/03/25 Complete 12:48 Chest 1vw RAD 02/03/25 Resulted 12:48 12 Lead Ekg Tracing- EKG 02/03/25 Logged Technical 12:48 Troponin I High LAB 02/03/25 Complete Sensitivity 12:48 Basic Metabolic Panel LAB 02/03/25 Complete 12:48 B-Type Natriuretic LAB 02/03/25 Complete Peptide 12:48 Knee 3vws Lt RAD 02/03/25 Resulted 12:48 Insulin Regular, PHA 02/03/25 Complete Human 3ml (Humulin R 14:30 Current Medications Medications (Trade) Dose Ordered Sig/Maggie Route PRN Reason Start Time Stop Time Status Last Admin Dose Admin Insulin Human Regular (humuLIN R 100 UNIT/ML 3ML) 8 unit ONCE ONCE IV 02/03/25 14:30 02/03/25 14:31 DC Vital Signs Date Time Temp Pulse Resp B/P (MAP) Pulse Ox O2 Delivery O2 Flow Rate FiO2 02/03/25 13:36 98.1 55 12 143/51 95 Room Air* 0 21 02/03/25 12:44 98.8 67 18 117/51 99 Room Air 0 1432/SPOKE WITH PATIENT IN HIS AT LENGTH. THEY BOTH AGREED THEY DO NOT WANT TO STAY IN THE HOSPITAL AT THIS TIME. SHE IS REQUESTING DICLOFENAC PER HIS KNEE BECAUSE SHE SAID HE DOES NOT LIKE MEDICATIONS. Medical Decision Making MDM MDM: DIFFERENTIAL DIAGNOSIS: ACS/AMI/CHF/FLUID OVERLOAD/KNEE CONTUSION/FRACTURE/UNCONTROLLED DIABETES RATIONALE: TESTS CONSIDERED AND ORDERED SECONDARY TO SHARED DECISION MAKING INCLUDE: EKG/LABS/RADIOLOGY PREVIOUS OUTSIDE RECORDS REVIEWED: OLD ER VISITS. RISK OF COMPLICATION AND/OR MORBIDITY OR MORTALITY OF PATIENT MANAGEMENT: NONE MEDICATIONS-PER MEDICATION RECONCILIATION NEED FOR HOSPITALIZATION: PATIENT DOES NOT MEET CRITERIA FOR HOSPITALIZATION. NONE NEED FOR EMERGENCY MAJOR/MINOR SURGERY: NO THERE ARE NO SOCIAL CONCERNS WITH THIS PATIENT. PRESCRIPTION DRUG MANAGEMENT DICLOFENAC PRESCRIPTIONS WILL INCLUDE SYMPTOMATIC CARE PATIENT'S PRIOR EXTERNAL MEDICAL RECORDS FROM OTHER ER VISITS WERE REVIEWED BY ME INDICATED. PRIOR TESTING AND RESULTS FROM PREVIOUS VISITS WERE REVIEWED. PRIOR TESTS WERE TAKEN INTO ACCOUNT WITH MEDICAL DECISION MAKING AND RESOURCE U TILIZATION, INDEPENDENT HISTORIAN/HISTORIANS WERE USED TO OBTAIN COMPLETE MEDICAL HISTORY. I INDEPENDENTLY INTERPRETED THE TEST THAT WERE PERFORMED, RESULTS WERE REVIEWED BY ME AND CONSIDERED FINDINGS ON RADIOLOGY IF ORDERED. MEDICAL MANAGEMENT AND EXAMINATION INTERPRETATION DISCUSSIONS WERE HAD BY ME WITH OTHER QUALIFIED HEALTHCARE PROFESSIONALS INDICATED FOR THE PATIENT'S CA RE. DX & DISP Disposition: Discharge Departure Impression: Primary Impression: Contusion of left knee, initial encounter Additional Impressions: Uncontrolled diabetes mellitus, Anemia of chronic kidney failure, Hypocalcemia, Elevated brain natriuretic peptide (BNP) level, Fall Condition: Stable Scripts Diclofenac Sodium (Diclofenac Sodium) 1 % Gel..gram. 1 APPL TP QID for 21 Days, #100 GM 0 Refills Prov: SEE MOLINA Sathish MEDICAL CLERK 02/03/25 Additional Instructions: FOLLOW-UP WITH PRIMARY CARE PROVIDER IN 1 TO 2 DAYS. TAKE MEDICATIONS DIRECTED HERE IN THE EMERGENCY ROOM. OKAY TO CONTINUE HOME MEDICATIONS UNLESS OTHERWISE DISCUSSED DURING YOUR VISIT IN THE EMERGENCY ROOM TODAY. RETURN TO YOUR NEAREST EMERGENCY ROOM IF SYMPTOMS WORSEN OR IF THERE IS NO IMPROVEMENT. CALL 911 IF YOU NEED IMMEDIATE ASSISTANCE. TAKE TYLENOL OR MOTRIN O [id number] NEEDED AND IF NO CONTRAINDICATIONS ARE PRESENT. INCREASE ORAL HYDRATION. A WOUND CULTURE OR URINE CULTURE WAS ORDERED HERE IN THE EMERGENCY ROOM DEPARTMENT PLEASE FOLLOW-UP WITH PRIMARY CARE PROVIDER AND ADVISE THEM TO GET REPEAT PORTS FROM OUR FACILITY. IF YOU HAD ANY FABY WRAP/SPLINTS THAT WERE APPLIED HERE, PLEASE DO NOT REMOVE THEM UNTIL YOU SEE YOUR PRIMARY CARE OR SPECIALTY. USE DICLOFENAC SODIUM DIRECTED UNTIL LEFT KNEE FOR PAIN. CONTINUE ALL MEDICATIONS AND TREATMENTS FROM YOUR DOCTOR NEW INCLUDE DIABETIC MEDICATIONS. SEE YOUR PRIMARY CARE DOCTOR ON WEDNESDAY FOR FOLLOW UP AND MANAGEMENT OF YOUR DIABETES. Referrals: [facility] (PCP) Time of Disposition: 14:34 I have reviewed the case, and I agree with, Diagnosis and Plan SEE MOLINA MEDICAL CLERK Feb 03, 2025 12:52
[2025-02-03 13:15] LABS: IMMATURE GRANULOCYTE ABSOLUTE 0.04 K/uL (0-1); NUCLEATED RED BLOOD CELLS 0.0 % (0.0-0.19); PLATELET COUNT (AUTO) 177 K/uL (130-400); RED BLOOD CELL COUNT(AUTO) 3.72 MIL/uL (4.50-6.20); RED CELL DISTRIBUTION WIDTH 13.0 % (11.0-15.5); WHITE BLOOD COUNT (AUTO) 7.6 K/uL (4.8-10.8)
[2025-02-03 13:22] LABS: CREATININE 5.1 mg/dL (0.5-1.3); GLOMERULAR FILTR. RATE CALC 11.0 mL/min (>90); GLUCOSE,RANDOM 280.0 mg/dL (70-105); SODIUM SERUM 136.0 mmol/L (136-145); UREA NITROGEN, BLOOD 43.0 mg/dL (7-18)
--- NOTE | 2025-02-03 14:14 | HMCIMG ---
EXAM: CR right Knee, 3 View. CLINICAL HISTORY: LEFT KNEE PAIN STATUS POST FALL ONE WEEK AGO COMPARISON: None provided. FINDINGS: BONES: No acute fracture or aggressive appearing osseous lesion. JOINTS: The joint spaces show no significant degenerative disease. There is no joint effusion appreciated. SOFT TISSUES: Vascular calcification noted. IMPRESSION: 1. No acute osseous injury. 2. No significant degenerative changes. 3. Vascular calcification noted. /[place]
--- NOTE | 2025-02-03 14:14 | HMCIMG ---
EXAM: CR Chest, 1 View. CLINICAL HISTORY: SHORTNESS A BREATH COMPARISON: None provided. FINDINGS: LUNGS: The lungs show no infiltrate or other acute finding. PLEURAL SPACES: No evidence of pleural effusion or pneumothorax. MEDIASTINUM: Cardiac size and mediastinal contours within normal limits. BONES: No aggressive appearing osseous lesion seen. IMPRESSION: No acute cardiopulmonary pathology is evident. /[place]
[2025-02-03] MEDS ORDERED: DICL100G60 TP (14:36)
--- NOTE | 2025-02-03 14:41 | EKG ---
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
[2025-02-03 14:53] VITALS: BP 157/53; PULSE 60; RESP 12; TEMP 98.1; O2SAT 99
== END 2025-02-03 15:12 | disposition home or self-care (01) ==
LOC: EDH 12:39
DX: S80.02XA Contusion of left knee, initial encounter (principal); E11.22 Type 2 diabetes mellitus with diabetic chronic kidney disease; I12.9 Hypertensive chronic kidney disease with stage 1 through stage 4 chronic kidney disease, or unspecified chronic kidney disease; N18.9 Chronic kidney disease, unspecified; E11.65 Type 2 diabetes mellitus with hyperglycemia; D63.1 Anemia in chronic kidney disease; E83.51 Hypocalcemia; R79.89 Other specified abnormal findings of blood chemistry; E78.00 Pure hypercholesterolemia, unspecified; Z79.899 Other long term (current) drug therapy; Z79.82 Long term (current) use of aspirin; Z79.51 Long term (current) use of inhaled steroids; W01.0XXA Fall on same level from slipping, tripping and stumbling without subsequent striking against object, initial encounter; Y93.89 Activity, other specified; Y92.89 Other specified places as the place of occurrence of the external cause; Y99.8 Other external cause status
CPT/HCPCS: 99285; 96374; 71045; 84484; 80048; 83880; 85025; 82948; 82010; 36415; 73562; 93005; J1815